=== PATIENT | female | born 2000 ===

== ENCOUNTER → 2023-05-21 23:59 | Outpatient (BNV) | payer OTHER, SELFPAY ==
--- NOTE | 2023-05-22 09:42 | A.OFFVIS_ITS ---
Intake Intake Visit Reasons: follow up HPI HPI Comments History of Present Illness Details student coming in for orientation but presents with a complicated history. she is 7 months w/ her second (1 EA when she was 15 years old. PMH: asthma - has both flovent and albuterol but hasn't used either in years. keeps refilling current pumps Kidney stones w/ 3 times - 2 times was admitted becuase was blocking - she passed without interventions and didn't feel pain in the passing just in the blocking . She did not get any covid vaccinations, didn't want them, never got known case covid [place] [facility] [place]adult and BSOB/gyne Mood: had therapist since she was 14 years old, mosto f the time in good spirits - can get 'overly frustrated', in past dx: depression, anxiety and mood disorder. Had a lot of trouble as a kid - delinquency/school -ended up in foster homes. mom 'wasn't the best enforcer . dad left home when she was 11 (he had meningitis when she was 16 and almost , blind and deaf - worse in one side both eye and ear) crack cocaine user - currently not - she is trying to hlep get him into program - but she struggles w/ her relationship w/ him. PMH: mom arthritis and anxiety and depression dad:meninigitis, drug abuse sis x 2, brother x 1 - health ok not with the baby's father currently (lizy thinks he might be in senior living) currently living in the nursing home on [address]. been approx 1 month and she struggles there - no sympathetic - just want rent and for you to 'do chores'. she was stuggling w/ kidney stones and was given rx for oxycodone but didn't wnat to take, this caused a bit of a problem when she called back for follow up - was instructed to take meds and to call them back or come in if still in pain, so she tried to get a pass from the nursing home which was denied, she stayed away (AWOL) to stay w/ her sister because she could transport her if she needed it . s he is contemplating leaving the nursing home and living w/ her sister - but doesn't want to screw up any chances for housing .. she is in nursing home because mom was section 8 and when she tried to move back in w/ her she wasn't on the lease anymore and so she is not allowed to stay there...mom's apt is moldy and not in good place so she moved into nursing home to get in to better housing on her own. she would prefer being in adult nursing home (more respectful)..would get a note from her therapist doesn't do well around other people ...she got herself on multiple housing lists. seems very intelligent and quick and wants to go to college - she pairer't get into any of the mata etc classes here because they have already started. testing well. consult w/ Lizy farrell (counselor) confirmed all the above and is supporting her in trying to get to housing. [facility] Medical History (Updated 05/22/23 @ 10:08 by MAGNOLIA Maldonado) History of anxiety disorder History of depression Sheltered homelessness COVID-19 vaccination declined Kidney stone complicating Asthma Family History (Updated 05/22/23 @ 10:06 by MAGNOLIA Maldonado) Mother Arthritis Father History of meningitis History of drug abuse Sister No problems noted. Sister No problems noted. Brother No problems noted. Review of Systems Const Details: Counseling visit: All systems reviewed & are unremarkable except as noted in HPI and below Reports as per HPI Resp Reports as per HPI GI Reports as per HPI Musc Reports as per HPI Neuro Reports as per HPI Psych Reports as per HPI Physical Exam Const General: cooperative, healthy appearing and no acute distress Nutritional Appearance: well nourished Orientation/consciousness: oriented to person Limitations: no limitations HEENT Other: wnl Eyes Other: wnl Chest Other: easy breathing Resp Effort & Inspection: able to speak in complete sentences Skin Other: normal in appearance Neuro General: oriented to person Psych Other: see HPI Mental Status: mental status grossly normal Speech and movement: Clear speech present Attitude: cooperative Thought process: Normal thought process present Assessment & Plan Assessment & Plan (1) Normal , incidental: Code(s): Z33.1 - state, incidental (2) Sheltered homelessness: Code(s): Z59.01 - Sheltered homelessness (3) Educated about COVID-19 virus infection: Code(s): Z71.89 - Other specified counseling (4) COVID-19 vaccination declined: Code(s): Z28.21 - Immunization not carried out because of patient refusal (5) Kidney stone complicating : Code(s): O26.839 - related renal disease, unspecified trimester; N20.0 - Calculus of kidney Plan plan 1) consultation w/ onsite presidential support specialist - informed about PMH, discussed client and need for support 2)releases signed if ambulance needed ffor kidney stone pain 3)support extensive Coding Level of Care Code New Pt Level 4 (40142) Diagnoses Normal , incidental Z33.1 Sheltered homelessness Z59.01 Educated about COVID-19 virus infection Z71.89 COVID-19 vaccination declined Z28.21 Kidney stone complicating O26.839; N20.0 Time Spent (min) 50 Comment conseling and coord w/ onsite presidential support specialist
== END ==
PROVIDERS: PCP Nurse Practitioner Family; Visit Provider Nurse Practitioner Family
DX: Z33.1 Pregnant state, incidental (principal); Z59.01 Sheltered homelessness; Z71.89 Other specified counseling; Z28.21 Immunization not carried out because of patient refusal; O26.839 Pregnancy related renal disease, unspecified trimester; N20.0 Calculus of kidney
CPT/HCPCS: 99204